=== PATIENT | female | born 2000 | race Caucasian/White ===

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

== ENCOUNTER 2018-03-16 18:43 | Emergency (ER) | payer MEDICAID ==
[2018-03-16 18:46] VITALS: BP 130/71; PULSE 85; RESP 18; TEMP 98; O2SAT 100
--- NOTE | 2018-03-16 19:13 | PD ---
HPI Chief Complaint: Shelf Stocker Problem/Complaint Time Seen by Provider: 19:03 Travel History International Travel<30 days: No Contact w/Intl Traveler<30days: No Traveled to known affect area: No History of Present Illness HPI 18-year-old white female presents emergency department we will complains of a painful menses. Patient has a history of irregular periods. She states this. Started approximately 14 days late. She has had a heavy vaginal flow with a large amount of pelvic cramping. Pain is moderate and is exacerbated by her.. No alleviating factors. She has taken one [id number] Percogesic without relief. She states that she does not like taking medications. Denies any fever chills. No nausea vomiting. No upper abdominal pain. No vaginal discharge. No dysuria, frequency or urgency. She does report having some slight diarrhea earlier this week. She states that she is a virgin and there is no chance of . PFSH Past Medical History Narrative Medical Exercise-induced asthma, skin cancer Diminished Hearing: No Respiratory: Yes (BRONCHITIS) Tetanus Vaccination: < 5 Years ?: Unknown Past Surgical History Narrative Surgical Excision of skin cancer Social History Alcohol Use: No Tobacco Use: No Substance Use: No Allergies-Medications (Allergen,Severity, Reaction): Coded Allergies: lactose (Unverified Allergy, Severe, 06/18/17) GAS Reported Meds & Prescriptions Reported Meds & Active Scripts Active No Active Prescriptions or Reported Medications Review of Systems Except as stated in HPI: all other systems reviewed are Neg Physical Exam Narrative GENERAL: Well-developed, well-nourished in no apparent distress. Nontoxic appearing. HEAD: Normocephalic, atraumatic. EYES: Pupils equal round and reactive. Extraocular motions intact. No scleral icterus. No injection or drainage. ENT: Nose clear. Throat without erythema, tonsillar hypertrophy or exudate. Uvula midline. Airway patent. NECK: Trachea midline. Supple, nontender, moves head freely. No central bony tenderness or spasm. CARDIOVASCULAR: Regular rate and rhythm without murmurs, gallops, or rubs. RESPIRATORY: Clear to auscultation. Breath sounds equal bilaterally. No wheezes , rales, or rhonchi. GASTROINTESTINAL: Abdomen soft, non-tender, nondistended. No hepato-splenomegaly , or palpable masses. No guarding. EXTREMITIES: No clubbing, cyanosis, or edema. No joint tenderness. BACK: Nontender without deformity. No flank tenderness. NEUROLOGICAL: Awake, alert and oriented x 3 .Cranial nerves grossly intact. Motor and sensory grossly within normal limits. Normal speech. Data Data Last Documented VS Vital Signs Date Time Temp Pulse Resp B/P (MAP) Pulse Ox O2 Delivery O2 Flow Rate FiO2 03/16/18 18:46 98.0 85 18 130/71 (90) 100 Orders Orders Complete Blood Count With Diff (03/16/18 19:11) Basic Metabolic Panel (Bmp) (03/16/18 19:11) Iv Access Insert/Monitor (03/16/18 19:11) Ed Urine Pregnancytest Poc (03/16/18 19:11) Ketorolac Inj (Toradol Inj) (03/16/18 19:15) Diphenhydramine Inj (Benadryl Inj) (03/16/18 19:15) Metoclopramide Inj (Reglan Inj) (03/16/18 19:15) Ua Includes Microscopic (03/16/18 19:16) Ed Discharge Order (03/16/18 20:43) Labs Laboratory Tests Test 03/16/18 19:36 03/16/18 20:00 White Blood Count 11.7 TH/MM3 Red Blood Count 3.95 MIL/MM3 Hemoglobin 11.1 GM/DL Hematocrit 32.6 % Mean Corpuscular Volume 82.4 FL Mean Corpuscular Hemoglobin 28.1 PG Mean Corpuscular Hemoglobin Concent 34.0 % Red Cell Distribution Width 14.0 % Platelet Count 259 TH/MM3 Mean Platelet Volume 8.3 FL Neutrophils (%) (Auto) 85.6 % Lymphocytes (%) (Auto) 6.7 % Monocytes (%) (Auto) 6.6 % Eosinophils (%) (Auto) 0.2 % Basophils (%) (Auto) 0.9 % Neutrophils # (Auto) 10.0 TH/MM3 Lymphocytes # (Auto) 0.8 TH/MM3 Monocytes # (Auto) 0.8 TH/MM3 Eosinophils # (Auto) 0.0 TH/MM3 Basophils # (Auto) 0.1 TH/MM3 CBC Comment AUTO DIFF Differential Total Cells Counted 100 Neutrophils % (Manual) 86 % Lymphocytes % 9 % Monocytes % 4 % Basophils % 1 % Neutrophils # (Manual) 10.1 TH/MM3 Differential Comment FINAL DIFF MANUAL Platelet Estimate NORMAL Platelet Morphology Comment CLUMPED Blood Urea Nitrogen 10 MG/DL Creatinine 0.75 MG/DL Random Glucose 146 MG/DL Calcium Level 8.8 MG/DL Sodium Level 140 MEQ/L Potassium Level 3.9 MEQ/L Chloride Level 107 MEQ/L Carbon Dioxide Level 23.4 MEQ/L Anion Gap 10 MEQ/L Estimat Glomerular Filtration Rate 99 ML/MIN Urine Color YELLOW Urine Turbidity CLEAR Urine pH 6.0 Urine Specific [place] 1.027 Urine Protein 30 mg/dL Urine Glucose (UA) NEG mg/dL Urine Ketones NEG mg/dL Urine Occult Blood MOD Urine Nitrite NEG Urine Bilirubin NEG Urine Urobilinogen 2.0 MG/DL Urine Leukocyte Esterase SMALL Urine RBC /hpf Urine WBC 20 /hpf Urine Squamous Epithelial Cells 1 /hpf Urine Bacteria FEW /hpf Urine Mucus MOD /lpf MDM Medical Decision Making Medical Screen Exam Complete: Yes Emergency Medical Condition: Yes Medical Record Reviewed: Yes Interpretation(s) CBC & BMP Diagram 03/16/18 19:36 Calcium Level 8.8 UA: Patient has numerous RBCs with a few WBCs and bacteria. I suspect this is a contaminated specimen. Differential Diagnosis Differential diagnosis: , menorrhagia, anemia, UTI Narrative Course IV access is obtained. Patient was given Toradol 30 mg IV, Benadryl 50 mg IV, and Reglan 10 mg IV. CBC, chemistry, hCG and UA. Diagnosis Primary Impression: Menorrhagia Qualified Codes: N92.1 - Excessive and frequent menstruation with irregular cycle Patient Instructions: General Instructions Additional Instructions: Rest. Increase fluids. 3 ibuprofen tablets every 6 hours as needed for pain and cramping. Follow-up with your primary care doctor or [facility] in the next 3-7 days. Return to the ER department. Med/Other Pt SpecificInfo: No Meds Exist/No RX given Scripts No Active Prescriptions or Reported Meds Disposition: 01 DISCHARGE HOME Condition: Stable Uriel Browne March 16, 2018 19:13
[2018-03-16] MEDS ORDERED: KETOROLAC TROMETHAMINE 30 MG/ML (IVP) VIAL IV PUSH ONE (19:15)
[2018-03-16] MEDS ORDERED: diphenhydrAMINE HCL 50 MG/ML VIAL IV PUSH ONE (19:15)
[2018-03-16] MEDS ORDERED: METOCLOPRAMIDE HCL 10 MG/2 ML VIAL IV PUSH ONE (19:15)
[2018-03-16 19:53] LABS: BASOPHIL # 0.1 TH/MM3 (0-0.2); BASOPHIL % 0.9 % (0.0-2.0); EOSINOPHIL % 0.2 % (0.0-4.0); HEMATOCRIT 32.6 % (35.0-46.0); HEMOGLOBIN 11.1 GM/DL (11.6-15.3); LYMPH % 6.7 % (9.0-44.0); LYMPHOCYTE # 0.8 TH/MM3 (1.0-4.8); MEAN CELL VOLUME 82.4 FL (80.0-100.0); MEAN CORPUSCULAR HEMOGLOBIN 28.1 PG (27.0-34.0); MEAN PLATELET VOLUME 8.3 FL (7.0-11.0); MONO % 6.6 % (0.0-8.0); MONOCYTE # 0.8 TH/MM3 (0-0.9); NEUT % 85.6 % (16.0-70.0); PLATELET COUNT 259 TH/MM3 (150-450); RED BLOOD COUNT 3.95 MIL/MM3 (4.00-5.30); WHITE BLOOD COUNT 11.7 TH/MM3 (4.0-11.0)
--- NOTE | 2018-03-16 20:06 | PD ---
Physical Exam Date Seen by Provider: March 16, 2018 Time Seen by Provider: 20:03 Narrative 18-year-old female came to the emergency room with history of pelvic cramps associated with her menstrual cycle. Patient says she usually gets these cramps but this time it was worse. She usually takes ibuprofen which makes it go away but this time she tried something new [id number] called Percogesic. She took 1 dose of it and it did not help and the pain continued to escalate. Patient is seen by my PA and I am supervising him. Patient has received medications for this and when I went to examine he said she was feeling better. Labs are pending. Patient denies any dysuria. If all the test results are within normal limits she will be discharged home. I have educated her and her mother to take just Motrin/ibuprofen/Advil for pain related to her menstrual cycle. Data Data Last Documented VS Vital Signs Date Time Temp Pulse Resp B/P (MAP) Pulse Ox O2 Delivery O2 Flow Rate FiO2 03/16/18 18:46 98.0 85 18 130/71 (90) 100 Orders Orders Complete Blood Count With Diff (03/16/18 19:11) Basic Metabolic Panel (Bmp) (03/16/18 19:11) Iv Access Insert/Monitor (03/16/18 19:11) Ed Urine Pregnancytest Poc (03/16/18 19:11) Ketorolac Inj (Toradol Inj) (03/16/18 19:15) Diphenhydramine Inj (Benadryl Inj) (03/16/18 19:15) Metoclopramide Inj (Reglan Inj) (03/16/18 19:15) Ua Includes Microscopic (03/16/18 19:16) Labs Laboratory Tests Test 03/16/18 19:36 White Blood Count 11.7 TH/MM3 Red Blood Count 3.95 MIL/MM3 Hemoglobin 11.1 GM/DL Hematocrit 32.6 % Mean Corpuscular Volume 82.4 FL Mean Corpuscular Hemoglobin 28.1 PG Mean Corpuscular Hemoglobin Concent 34.0 % Red Cell Distribution Width 14.0 % Platelet Count 259 TH/MM3 Mean Platelet Volume 8.3 FL Neutrophils (%) (Auto) 85.6 % Lymphocytes (%) (Auto) 6.7 % Monocytes (%) (Auto) 6.6 % Eosinophils (%) (Auto) 0.2 % Basophils (%) (Auto) 0.9 % Neutrophils # (Auto) 10.0 TH/MM3 Lymphocytes # (Auto) 0.8 TH/MM3 Monocytes # (Auto) 0.8 TH/MM3 Eosinophils # (Auto) 0.0 TH/MM3 Basophils # (Auto) 0.1 TH/MM3 CBC Comment AUTO DIFF MDM Supervised Visit with RIMMA: No Scripts No Active Prescriptions or Reported Meds Francis Light MD March 16, 2018 20:06
[2018-03-16 20:08] LABS: BICARBONATE 23.4 MEQ/L (21.0-32.0); CALCIUM 8.8 MG/DL (8.5-10.1); CREATININE 0.75 MG/DL (0.50-1.00)
[2018-03-16 20:30] LABS: BACTERIA, URINE FEW /hpf; BILIRUBIN, URINE NEG (NEG); BLOOD, URINE MOD (NEG); GLUCOSE,URINE NEG (NEG); KETONE, URINE NEG (NEG); MUCUS URINE MOD /lpf (OCC); NITRITE,URINE NEG (NEG); SQUAMOUS EPITHELIAL CELL URINE 1 /hpf (0-5); URINE COLOR YELLOW (YELLW/STRAW); URINE LEUKOCYTE ESTERASE SMALL (NEG)
[2018-03-16 20:33] LABS: BASOPHILS 1 % (0-2); LYMPHOCYTES 9 % (9-44); MONOCYTES 4 % (0-8); NEUTROPHIL # MANUAL DIFF 10.1 TH/MM3 (1.8-7.7); POLYS (SEG NEUTROPHILS) 86 % (16-70)
== END 2018-03-16 21:15 | disposition home or self-care (01) ==
LOC: NEPD 18:43
DX: N92.0 Excessive and frequent menstruation with regular cycle (principal); R82.99 Other abnormal findings in urine; Z85.828 Personal history of other malignant neoplasm of skin
CPT/HCPCS: 80048; 81001; 84703; 85007; 85027; 87086; 96374; 96375; 99284; J1200; J1885; J2765